=== PATIENT | male | born 1950 | race Caucasian/White ===

== ENCOUNTER 2017-04-12 15:57 | Inpatient (IN) | payer OTHER ==
[~2017-04-12] VITALS: Ht 154.9 cm; Wt 58.3 kg
--- NOTE | ~2017-04-12 | HP ---
History And Physical [place] [id number] [facility] [place]. [address] NAME: RK FRANCOIS : 50 STATUS : ADM IN [facility]#: [id number] AGE: 66 ADM/REG DATE : 04/12/17 MR#: [id number] REPORT SERV DATE: 04/12/17 DICTATED BY: MIKAL CORDERO DATE: 04/12/17 REPORT STATUS : Draft TRANSCRIBED BY: DARIUS DATE: 04/12/17 DATE OF ADMISSION: 04/12/2017 VASCULAR SURGEON: Olegario Madsen M.D. BRANCH LEAD: Toño Lima DPM HISTORY OF PRESENT ILLNESS: This is a 66-year-old male referred to direct admit by Dr. Lima for right foot cellulitis, rule out osteomyelitis. The patient was recently admitted and discharged here from March 25 to March 31 with a right foot gangrene. During that admission, he had an I and D and 4th toe amputation and partial amputation of the hallux. He also underwent a stent placement in the right lower extremity. The patient was then transferred to [facility], and from what he is telling me he did not receive any kind of physical therapy there. The patient went for a followup with Dr. Lima, and he noted that his foot is getting worse and needs to be admitted to rule out for an osteomyelitis and started on antibiotics. The patient denies any fever, chills, or sweats. No nausea and vomiting. He denies any chest pain or abdominal pain. He does admit for right foot pain. He said he takes Tylenol No. 3 over there in [facility], but he does not get much relief from it. He continues to smoke, and he refuses to quit despite several staff members including myself telling him that this would worsen his foot blood supply and he said he is going to smoke until he dies. There was no note of any change in mental status, near syncopal, or syncopal episode, cough or shortness of breath. There is no localized weakness. He did admit to having some increased erythema, pain, and swelling on that right foot. He denies any drainage or odor. REVIEW OF SYSTEMS: The rest of the 14-point review of system is negative except as above. PAST MEDICAL HISTORY: Includes CAD with history of CABG on 08/04/2015, history of colon cancer with surgery, hypertension, COPD, PAD with history of stent placement, history of an old stroke. ALLERGIES: HE SAYS HE IS ALLERGIC TO PENICILLIN AND KEFLEX. HOWEVER, PREVIOUS REPORT HERE, HE WAS ABLE TO TOLERATE ANCEF. MEDICATIONS: Include aspirin, Coreg, Plavix, Colace, gabapentin, Protonix, Florastor, Zocor, and Tylenol No. 3. FAMILY HISTORY: Mom had colon cancer. Dad of MVA. One sibling with CAD. SOCIAL HISTORY: He smokes 1-1/2 packs a day. No alcohol. 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 PHYSICAL EXAMINATION: GENERAL: The patient is alert and oriented x3, not in cardiopulmonary distress. VITAL SIGNS: Include temperature 98.3, pulse rate of 80, blood pressure of 140/59, respiration of 18, saturating 99% on room air. History And Physical [address] [address] NAME: RK FRANCOIS : 50 STATUS : ADM IN [facility]#: [id number] AGE: 66 ADM/REG DATE : 04/12/17 MR#: [id number] REPORT SERV DATE: 04/12/17 DICTATED BY: MIKAL CORDERO DATE: 04/12/17 REPORT STATUS : Draft TRANSCRIBED BY: MODAnne DATE: 04/12/17 NECK: He has supple neck. No JVD or carotid bruits. No lymphadenopathy. HEENT: Julia[place] conjunctivae. Anicteric sclerae. No pharyngeal erythema. LUNGS: Clear lungs. No rales. No wheezes. HEART: Regular rate and rhythm. No murmurs. Positive bowel sounds. ABDOMEN: Soft, nontender. No masses. EXTREMITIES: Fair pulses. No edema except for the right foot with some mild edema, erythema on the first toe, and slightly proximal to it tenderness, slightly warm. NEURO: Nonlocalizing. ASSESSMENT: 1. Right foot cellulitis, rule out osteomyelitis. 2. Coronary artery disease with recent stent placement. 3. Chronic obstructive pulmonary disease. 4. Coronary artery disease with history of coronary artery bypass grafting. 5. Chronic congestive heart failure with ejection fraction of 40% to 45%. 6. Hypertension. 7. Chronic pain. 8. Tobacco abuse. 9. History of colon cancer, status post surgery. PLAN: The patient will be started on Ancef while we get blood cultures and MRI on his foot. It is positive for osteomyelitis or abscesses. He will need surgery. We will continue his antiplatelets, gabapentin, and Zocor. Counseled on stopping smoking, but he refused. AKOSUA/DARIUS Mikal Cordero M.D. / [id number] CC: Tori Fleming M.D.
--- NOTE | ~2017-04-12 | DS ---
Discharge Summary [facility] [address] [place]. [address] NAME: RK FRANCOIS : 50 STATUS : ADM IN [facility]#: [id number] AGE: 66 ADM/REG DATE : 04/12/17 MR#: [id number] REPORT SERV DATE: 04/27/17 DICTATED BY: HOWIE SOLORIO DATE: 04/26/17 REPORT STATUS : Draft TRANSCRIBED BY: MODAnne DATE: 04/26/17 ADMISSION DATE: 04/12/2017 DISCHARGE DATE: 04/26/2017 PRINCIPAL DIAGNOSIS: Osteomyelitis of right foot status post transmetatarsal amputation. SECONDARY DIAGNOSES: Systolic congestive heart failure, chronic obstructive pulmonary disease, peripheral vascular disease, postoperative acute blood loss anemia, coronary artery disease, hypertension. HISTORY OF PRESENT ILLNESS: Please see Dr. Otero's dictation on 04/12/2017. HOSPITAL COURSE: Please see subsequent interim summary by Dr. Otero on 04/18/[address] Navarro on 04/25/2017. Hospital course after that, the patient declined any transfusion. Ferritin was found to be satisfactory. No iron infusion necessary. Arrangements were made to [facility] and he was expected to transfer there on 04/26/2017. Please see Dr. Navarro's note for discharge medications. He will follow up with Dr. Lima following discharge. Greater than 30 minutes was spent in the care of this patient in discharge day and discharge planning. MARIJA/DARIUS Howie Solorio M.D. / [id number] CC: Tori Jean M.D.
--- NOTE | ~2017-04-12 | OP ---
Record Of Operation [facility] [address] [place]. [address] NAME: RK FRANCOIS : 50 STATUS : DIS IN PAT#: [id number] AGE: 66 ADM/REG DATE : 04/12/17 MR#: [id number] REPORT SERV DATE: 05/02/17 DICTATED BY: PHYLLIS LESLIE DATE: 04/28/17 REPORT STATUS : Draft TRANSCRIBED BY: MODL DATE: 04/28/17 DATE OF PROCEDURE: 04/18/2017 POOR AUDIO, CUTTING IN AND OUT PREOPERATIVE DIAGNOSIS: Osteomyelitis, right foot. POSTOPERATIVE DIAGNOSIS: Osteomyelitis, right foot. PROCEDURE: Transmetatarsal amputation, right foot. SURGEON: Phyllis Leslie DPM ANESTHESIA: General. HEMOSTASIS: Pneumatic ankle tourniquet. ESTIMATED BLOOD LOSS: 15 mL. MATERIALS: 3-0 Monocryl and skin get. INDICATION: This 66-year-old male is status post right 4th toe amputation and terminal Symes amputation, 03/27/2017. He has been nonadherent to the post surgical plan, with extensive smoking and weightbearing. He has experienced the dehiscence and necrosis of the surgical wounds, and MRI was positive for osteomyelitis of the fourth metatarsal head. Given the poor healing demonstrated down the fourth digit amputation site, I suggested a transmetatarsal amputation, and the patient was agreeable. PROCEDURE IN DETAIL: After limb was marked in preop, the patient was taken to the operating room and placed on the operating table in a supine position. After induction of general anesthesia, a pneumatic tourniquet was applied, and the foot was prepped and draped in the usual sterile fashion. Using a skin marker, a large fishmouth incision was scribed on the skin across the dorsal metatarsal heads, and the plantar sulcus. Using a #10 blade, an incision was made through skin following the casie, down to the level of bone, with sharp dissection proximally to free the distal metatarsal shaft in preparation for osteotomy. Ample bleeding was noted, and the tourniquet was raised. Satisfied with this, attention was turned to the metatarsal osteotomy. A sagittal saw was used to cut the fourth metatarsal through and through at the distal shaft, with the cut made in a proximal inferior direction to leave a bevelled weightbearing surface. The bone quality was examined, and no infected tissue was observed. With a small amount of bleeding, bone quality was judged satisfactory. This process was repeated at the third metatarsal. Attention was then directed to the fifth metatarsal. It was cut through and through in a distal, dorsal, and medial to plantar proximal, lateral direction at the distal shaft, just proximal to the level of the fourth metatarsal osteotomy. In a similar manner, the remaining metatarsals were cut, with a resulting metatarsal stumps preserving the normal parabola and the first metatarsal beveled slightly medially. The fourth metatarsal head was sent to microbiology for bone culture, Record Of Operation [facility] [address] [facility] [place]. [address] NAME: RK FRANCOIS : 50 STATUS : DIS IN PAT#: [id number] AGE: 66 ADM/REG DATE : 04/12/17 MR#: [id number] REPORT SERV DATE: 05/02/17 DICTATED BY: PHYLLIS LESLIE DATE: 04/28/17 REPORT STATUS : Draft TRANSCRIBED BY: DARIUS DATE: 04/28/17 and the surgical neck was cut through from the head and sent to pathology for clear margin. Plantar tissue planes were identified, and using clean instruments, the sesamoid complex, flexor tendons, and plantar fascia were freed from adjacent soft tissue, and the entire distal foot was delivered from the surgical field. Attention was directed to the metatarsal shafts, and the sagittal saw was used to more perfectly align the ends with the parabola and resect any sharp prominences. Tendon ends were identified, grasped, and freed and resected proximally. Remaining fascia and connective tissue was resected as far as possible to leave healthy bleeding tissue. Attention was directed to the skin margins, and areas of minimal bleeding were identified and resected proximally. The site was pulse lavaged with 2 L of sterile saline. New gloves were donned. The tourniquet was lowered, and surgical sites were examined for any areas of nonviable tissue, but none were found. The plantar skin was then wrapped across the surgical site and approximated to the dermis. 3-0 Monocryl was used to close deep tissue. [place] were used to close the skin at the ends of the surgical site. Closure was not possible at the distal longitudinal incision due to resected nonviable skin at these sites. A wound VAC was then applied with black foam in each of these sites and a bridge between. The patient tolerated the above procedure and anesthesia well, and was transported from the operating room to postop with vital signs stable and in no acute distress. ODETTE/DARIUS Phyllis Leslie DPM / [id number] CC: Bruce Fraser M.D. UNKNOWN
--- NOTE | ~2017-04-12 | DS ---
Discharge Summary [facility] [address] [facility] [place]. [address] NAME: RK FRANCOIS : 50 STATUS : DIS IN PAT#: [id number] AGE: 66 ADM/REG DATE : 04/12/17 MR#: [id number] REPORT SERV DATE: 04/29/17 DICTATED BY: HOWIE SOLORIO DATE: 04/28/17 REPORT STATUS : Draft TRANSCRIBED BY: MODL DATE: 04/28/17 ADMISSION DATE: 04/12/2017 DISCHARGE DATE: 04/28/2017 PRINCIPAL DIAGNOSES: Osteomyelitis of the right foot with cellulitis requiring transmetatarsal amputation. SECONDARY DIAGNOSES: Chronic systolic congestive heart failure, chronic obstructive pulmonary disease due to tobacco abuse, peripheral arterial disease, anemia, coronary artery disease, hypertension. HISTORY OF PRESENT ILLNESS: Please see Dr. Otero's dictation 04/12/2017. HOSPITAL COURSE: Please see interim summary of Dr. Otero on 04/18/2017 and also interim summary by Dr. Navarro's on 04/25/2017. Further hospital course; the patient was awaiting placement in a [facility] facility. He actually had no further problems. No further bleeding. Pain control was the major issue and by 04/28/2017, he was in fact improved and was transferred there in satisfactory condition. Low-salt, low-fat diet, physical and occupational therapy per facility. Continue the following medications; nicotine patch, OxyContin, Percocet p.r.n., Prinivil, Silvadene, Neurontin, Valium, Colace, aspirin, Plavix, Zocor, Florastor, Coreg, p.r.n. nebs. He will follow up with Toño Lima DPM following SNF discharge. Greater than 30 minutes was spent in the care of this patient's discharge planning on discharge day. MARIJA/DARIUS Howie Solorio M.D. / [id number] CC: Tori Jean DPM
--- NOTE | ~2017-04-12 | DS ---
Discharge Summary [facility] [address] [place]. [address] NAME: RK FRANCOIS : 50 STATUS : ADM IN [facility]#: [id number] AGE: 66 ADM/REG DATE : 04/12/17 MR#: [id number] REPORT SERV DATE: 04/26/17 DICTATED BY: DATE: REPORT STATUS : Draft TRANSCRIBED BY: MODL DATE: 04/25/17 ADMISSION DATE: 04/12/2017 DISCHARGE DATE: ANTICIPATED DATE OF DISCHARGE: 04/25/2017. The [facility] is [facility] with multiple attendings including Dr. Otero, Dr. Pope, and Dr. Navarro. CONSULTANTS: Included Podiatry - Dr. Lima and vascular Surgery - Dr. Madsen. DISCHARGE DIAGNOSES: 1. Right foot cellulitis/osteomyelitis/gangrene, status post right transmetatarsal amputation on 04/18/[address] Lima. Culture data showing methicillin-susceptible Staphylococcus aureus, Stenotrophomonas, diphtheroids. To complete 14 days of antibiotics. Presently on Bactrim through 04/26/2017. Status post nine days of IV Ancef. 2. Postoperative functional limitations - inability to perform own wound care or bear weight. 3. Cachexia and chronic failure to thrive. 4. Postoperative acute blood loss anemia with transfusion refusals. 5. History of colon cancer. 6. Chronic pain syndrome. 7. Peripheral arterial disease with recent right superficial femoral artery and proximal popliteal artery stent placement. 8. Coronary artery disease. 9. Coronary artery bypass grafting. 10.History of systolic congestive heart failure - chronic, with ejection fraction 45%. 11.Tobacco dependence. IMAGIN. MRI of the right lower extremity on 04/13/2017 for gangrene shows marrow signal abnormalities in the fourth phalanx, third, fourth, and fifth metatarsal heads, third proximal and middle phalanges, fifth proximal phalanx likely reflective of osteomyelitis. Mild signal abnormalities within the subcu tissues of the mid and distal foot compatible with cellulitis. 2. Right lower extremity venous Doppler ultrasound, 04/14/2017 shows normal indices and normal flow in the right lower extremity with mild decrease in the toe waveform consistent with small-vessel disease, but no stent occlusion. 3. Plain films of the right foot, 04/18/2017, after amputation shows interval transmetatarsal amputation of the right foot with mild amount of soft tissue gas, not unexpected in the immediate postsurgical state. PERTINENT LABS: Basic metabolic panel has remained stable this admission with no abnormalities in creatinine or electrolytes. Past iron studies indicative of anemia of chronic inflammation. White blood cell count this admission has been normal. Hemoglobin Discharge Summary [facility] [address] [place]. [address] NAME: RK FRANCOIS : 50 STATUS : ADM IN PAT#: [id number] AGE: 66 ADM/REG DATE : 04/12/17 MR#: [id number] REPORT SERV DATE: 04/26/17 DICTATED BY: DATE: REPORT STATUS : Draft TRANSCRIBED BY: MODL DATE: 04/25/17 value at admission was 10.0, currently 7.6. Platelet count is normal. Coagulation studies are normal. Blood cultures were negative. Surgical cultures, positive for MSSA, Stenotrophomonas, and diphtheroids; resistant to ampicillin, penicillin, clindamycin, susceptible to Bactrim. BRIEF HISTORY: For full details, please see the previously dictated history of present illness by Dr. Yovany Otero. This is a 66-year-old white male with recent admission for right lower extremity cellulitis and gangrene, who underwent an I and D with fourth toe amputation and partial amputation of the hallux earlier in March as well as stent placement for the right lower extremity. 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 HOSPITAL COURSE: For full details, please reference interim discharge summary by Dr. Yovany Otero for dates of service, 04/12/2017 through 04/18/2017. In essence, the patient was initiated on IV Ancef, awaiting blood cultures and MRI of his foot. The MRI was positive for osteomyelitis, but no abscesses. It was felt that he would require surgery, so Podiatry followed and took the patient for right transmetatarsal amputation on 04/18/2017. The patient did well postoperatively, and his subsequent culture data demonstrated MSSA, Stenotrophomonas, and diphtheroids. His surgical dressing was taken down on , 04/25/2017, by Dr. Lima, who reported reasonable healing and granulation. His recommendation was to complete 14 days total of antibiotics, and the patient was transitioned to oral Bactrim with the 14-day total course of antibiotics to be completed after the 04/26/2017 doses. Postoperatively, the patient has had acute blood loss anemia with a decline in hemoglobin from 10 to 7.6. He refuses transfusions "unless I am dying." He denies any chest pain, shortness of breath, or presyncope with the decline in hemoglobin and is asymptomatic from that perspective. The patient has been waiting in the hospital for approval for rehab. [facility] is currently evaluating the chart and has submitted to insurance for approvals. We are awaiting insurance decisions and bed availability. The patient is willing to consider a correction facility as an alternative if he has refused at [facility], although he has had bad experiences there in the past and is reluctant to consider certain facilities. He has demonstrated clear noncompliance during past discharges to home, and with his new mobility limitations postamputation, I am concerned that he will not be able to tend to his wounds. Home Health was discussed with him as an option, but he refuses it secondary to financial concerns. DISPOSITION: Pending approval at [facility], the patient will be transferred there for acute inpatient rehab and further monitoring of his declining hemoglobin values. DISCHARGE MEDICATIONS: Include: 1. Aspirin 81 mg p.o. daily. 2. Carvedilol 3.125 mg p.o. b.i.d. 3. Plavix 75 mg p.o. daily. Discharge Summary [address] [address] NAME: RK FRANCOIS : 50 STATUS : ADM IN [facility]#: [id number] AGE: 66 ADM/REG DATE : 04/12/17 MR#: [id number] REPORT SERV DATE: 04/26/17 DICTATED BY: DATE: REPORT STATUS : Draft TRANSCRIBED BY: MODL DATE: 04/25/17 4. Neurontin 100 mg p.o. three times a day. 5. Colace 100 mg p.o. three times daily as needed for constipation. 6. Simvastatin 20 mg p.o. q.h.s. 7. Silvadene cream applied with dressing changes every 48 hours. 8. Bactrim double strength one tablet p.o. twice a day through 04/26/2017. 9. Tylenol 650 mg every four hours as needed for pain or fever. 10.Percocet 10/325 mg one tablet p.o. every four hours as needed for pain. 11.Prilosec 40 mg p.o. q.a.c. breakfast. 12.DuoNebs q.4 hours while awake as needed for shortness of breath. Thirty-five minutes was spent in completion of the discharge. NINO/DARIUS Carlos Alberto Navarro M.D. / [id number] CC: Tori Phillips M.D. Christopher Lesar, M.D. David Q. Anderson, DPM
--- NOTE | ~2017-04-12 | IDS ---
Interim Discharge Summary [facility] [address] [place]. [address] NAME: RK FRANCOIS : 50 STATUS : ADM IN [facility]#: [id number] AGE: 66 ADM/REG DATE : 04/12/17 MR#: [id number] REPORT SERV DATE: 04/18/17 DICTATED BY: MIKAL CORDERO DATE: 04/18/17 REPORT STATUS : Draft TRANSCRIBED BY: MODAnne DATE: 04/18/17 ADMISSION DATE: 04/12/2017 DISCHARGE DATE: CONSULTING PHYSICIAN: Olegario Madsen M.D., vascular surgery. INTERIM DIAGNOSES: 1. Right foot osteomyelitis and cellulitis, status post surgery. 2. Peripheral arterial disease with recent stent placement. 3. Coronary artery disease with history of coronary artery bypass graft. 4. Hypertension. 5. Chronic congestive heart failure with ejection fraction of 40% to 45%. 6. Chronic obstructive pulmonary disease. 7. Chronic pain. 8. Tobacco abuse. DIAGNOSTIC EXAMS: MRI of the right foot showing status post amputation of the 4th digit and partial amputation of the big toe distal phalanx. Mild marrow signal abnormality of the residual big toe distal phalanx; third, fourth, and fifth metatarsal head; third proximal and middle phalanges; fifth proximal phalanx; possible osteomyelitis; mild signal abnormality in the subcutaneous tissue of the mid and distal foot compatible with cellulitis. Arterial Duplex showing normal indices in both lower extremities. Normal flow in the right lower extremity. Mild decrease in the toe waveform consistent with small vessel disease. Normal arterial waveforms in the left lower extremity. HOSPITAL COURSE: Please refer to the H and P done by myself on 04/12/2017. Briefly, this is a 66-year-old male who was recently admitted and discharged for right foot gangrene. During that admission, the patient underwent right SFA and proximal popliteal artery stent placement with balloon angioplasty followed by I and D and fourth toe amputation and partial first toe amputation. The patient was then sent to rehab, and according to him he was not taking any rehab. The patient followed up with Dr. Toño Lima, where he found the foot looking like it is infected. Again, he sent the patient for a direct admit, and we did an MRI which shows the above findings. We got Dr. Madsen involve who cleared the patient for surgery, and Dr. Lima involved where he just finished doing TMA on the patient. The patient is now in recovery, and he will be continued to be monitored to the floor afterwards where he is going to continue his Ancef for now to cover the previous pathogen of MSSA, and we will be following up the culture done in the OR and pathology if ever it was sent. A partner of [facility] will be following up the patient starting tomorrow morning. AKOSUA/DARIUS Mikal Cordero M.D. Interim Discharge Summary [address] [address] NAME: RK FRANCOIS : 50 STATUS : ADM IN [facility]#: [id number] AGE: 66 ADM/REG DATE : 04/12/17 MR#: [id number] REPORT SERV DATE: 04/18/17 DICTATED BY: MIKAL CORDERO DATE: 04/18/17 REPORT STATUS : Draft TRANSCRIBED BY: DARIUS DATE: 04/18/17 / [id number] CC: Tori Fleming M.D.
[~2017-04-12 15:57] MED LIST: ASAB PO; CLEOCIN300 MG PO; COREG3 PO; LORTAB10 PO; MSCONT15 PO; NITROSTAT0.4 MG SL; NORCO1 TAB PO; OXYIR5 MG PO; PLAVIX PO; PRAVACHOL40 MG PO; PRILOSEC40 MG PO; PROTONIX PO; QUESLITE PO; ULTRAM50 PO; ZOCOR20 PO
[2017-04-12] MEDS ORDERED: PLAVIX PO (17:51)
[2017-04-12] MEDS ORDERED: PROBIOTIC PO (17:52)
[2017-04-12] MEDS ORDERED: T3 PO (17:55)
[2017-04-12] MEDS ORDERED: DSS PO (17:55)
[2017-04-12] MEDS ORDERED: NEUR100 PO (17:55)
[2017-04-12] MEDS ORDERED: ASAB PO (17:56)
[2017-04-12 23:22] LABS: BASOPHILS 0.4 %; BASOPHILS ABSOLUTE 0.03 10/3/uL (0.0-0.16); EOSINOPHILS 4.7 %; EOSINOPHILS ABSOLUTE 0.39 10/3/uL (0.0-0.53); IMMATURE GRANULOCYTES 0.4 %; IMMATURE GRANULOCYTES ABSOLUTE 0.03 10/3/uL (0.0-0.11); LYMPHOCYTES 24.6 %; LYMPHOCYTES ABSOLUTE 2.04 10/3/uL (0.67-4.30); MEAN CORPUSCULAR HEMOGLOB 29.6 pg (26.0-34.0); MEAN CORPUSCULAR VOLUME 91.4 fL (80-100); MEAN PLATELET VOLUME 8.2 fL (9.2-13.0); MONOCYTES 7.3 %; MONOCYTES ABSOLUTE 0.61 10/3/uL (0.21-1.20); NEUTROPHILS 62.6 %; RBC DISTRIBUTION WIDTH 14.9 % (12.0-16.0); RED CELL COUNT 3.38 10/6/uL (4.7-6.1); WHITE BLOOD CELLS 8.3 10/3/uL (4.5-10.5)
[2017-04-12 23:23] LABS: HEMATOCRIT 30.9 % (40.0-51.0); MANUAL DIFF NO %; MEAN CORPUS HGB CONC 32.4 g/dL (32.0-36.0); PLATELET COUNT 294 10/3/uL (150-400)
[2017-04-12 23:28] LABS: INTERNATIONAL NORMAL RATI 1.2 UNITS (-); PARTIAL THROMBO TIME 46.5 SEC (22.5-37.2); PROTIME (NOT ORD) 14.7 SEC (12.0-14.5)
[2017-04-12 23:42] LABS: A/G RATIO 0.7 (0.7-1.9); ALBUMIN 3.1 G/DL (3.5-5.0); BUN (BLOOD UREA NITROGEN) 14 MG/DL (6-23); CALCIUM, SERUM 8.5 MG/DL (8.5-10.4); CHLORIDE, SERUM 104 MMOL/L (96-112); CREATININE 1.05 MG/DL (0.70-1.30); GFR AFRICAN AMERICAN 85 ML/MIN (>=60); GFR NON AFRICAN AMERICAN 74 ML/MIN (>=60); GLOBULIN 4.3 G/DL (2.5-4.1); POTASSIUM, SERUM 3.9 MMOL/L (3.5-5.3); SGOT(AST) 51 U/L (5-40); SGPT(ALT) 69 U/L (5-65); SODIUM, SERUM 137 MMOL/L (135-148); TOTAL BILIRUBIN 0.4 MG/DL (0-1.2); TOTAL PROTEIN 7.4 G/DL (6.0-8.5)
[2017-04-12 23:43] LABS: ALKALINE PHOSPHATASE 119 U/L (45-117); CO2 (CARBON DIOXIDE) 30 MMOL/L (24-34); GLUCOSE, SERUM 126 MG/DL (60-99)
[2017-04-18 06:10] LABS: BASOPHILS 0.9 %; BASOPHILS ABSOLUTE 0.06 10/3/uL (0.0-0.16); EOSINOPHILS 3.9 %; EOSINOPHILS ABSOLUTE 0.27 10/3/uL (0.0-0.53); HEMATOCRIT 29.5 % (40.0-51.0); HEMOGLOBIN 9.6 g/dL (13.6-17.8); IMMATURE GRANULOCYTES 0.3 %; IMMATURE GRANULOCYTES ABSOLUTE 0.02 10/3/uL (0.0-0.11); LYMPHOCYTES 30.9 %; LYMPHOCYTES ABSOLUTE 2.16 10/3/uL (0.67-4.30); MANUAL DIFF NO %; MEAN CORPUS HGB CONC 32.5 g/dL (32.0-36.0); MEAN CORPUSCULAR HEMOGLOB 29.6 pg (26.0-34.0); MEAN PLATELET VOLUME 8.2 fL (9.2-13.0); MONOCYTES 8.2 %; MONOCYTES ABSOLUTE 0.57 10/3/uL (0.21-1.20); NEUTROPHILS 55.8 %; NEUTROPHILS ABSOLUTE 3.91 10/3/uL (2.02-8.40); PLATELET COUNT 219 10/3/uL (150-400); RBC DISTRIBUTION WIDTH 15.2 % (12.0-16.0); RED CELL COUNT 3.24 10/6/uL (4.7-6.1)
[2017-04-18 06:24] LABS: BUN (BLOOD UREA NITROGEN) 16 MG/DL (6-23); CALCIUM, SERUM 8.7 MG/DL (8.5-10.4); CHLORIDE, SERUM 104 MMOL/L (96-112); CO2 (CARBON DIOXIDE) 29 MMOL/L (24-34); CREATININE 0.81 MG/DL (0.70-1.30); GFR AFRICAN AMERICAN 107 ML/MIN (>=60); GFR NON AFRICAN AMERICAN 93 ML/MIN (>=60); POTASSIUM, SERUM 4.5 MMOL/L (3.5-5.3); SODIUM, SERUM 139 MMOL/L (135-148)
[2017-04-18 06:25] LABS: GLUCOSE, SERUM 90 MG/DL (60-99)
[2017-04-19 06:21] LABS: BASOPHILS 0.3 %; BASOPHILS ABSOLUTE 0.03 10/3/uL (0.0-0.16); EOSINOPHILS 2.1 %; EOSINOPHILS ABSOLUTE 0.19 10/3/uL (0.0-0.53); HEMATOCRIT 27.9 % (40.0-51.0); HEMOGLOBIN 9.1 g/dL (13.6-17.8); IMMATURE GRANULOCYTES 0.2 %; IMMATURE GRANULOCYTES ABSOLUTE 0.02 10/3/uL (0.0-0.11); LYMPHOCYTES 14.2 %; LYMPHOCYTES ABSOLUTE 1.29 10/3/uL (0.67-4.30); MEAN CORPUS HGB CONC 32.6 g/dL (32.0-36.0); MEAN CORPUSCULAR HEMOGLOB 29.2 pg (26.0-34.0); MEAN CORPUSCULAR VOLUME 89.4 fL (80-100); MEAN PLATELET VOLUME 8.2 fL (9.2-13.0); MONOCYTES 10.2 %; MONOCYTES ABSOLUTE 0.93 10/3/uL (0.21-1.20); NEUTROPHILS ABSOLUTE 6.63 10/3/uL (2.02-8.40); PLATELET COUNT 201 10/3/uL (150-400); RBC DISTRIBUTION WIDTH 15.3 % (12.0-16.0); RED CELL COUNT 3.12 10/6/uL (4.7-6.1); WHITE BLOOD CELLS 9.1 10/3/uL (4.5-10.5)
[2017-04-19 06:23] LABS: MANUAL DIFF NO %
[2017-04-19 06:48] LABS: BUN (BLOOD UREA NITROGEN) 14 MG/DL (6-23); CALCIUM, SERUM 8.4 MG/DL (8.5-10.4); CHLORIDE, SERUM 100 MMOL/L (96-112); CO2 (CARBON DIOXIDE) 26 MMOL/L (24-34); CREATININE 0.83 MG/DL (0.70-1.30); GFR AFRICAN AMERICAN 106 ML/MIN (>=60); GFR NON AFRICAN AMERICAN 92 ML/MIN (>=60); POTASSIUM, SERUM 4.3 MMOL/L (3.5-5.3); SODIUM, SERUM 134 MMOL/L (135-148)
[2017-04-19 06:49] LABS: GLUCOSE, SERUM 120 MG/DL (60-99)
[2017-04-20 05:16] LABS: BASOPHILS 0.5 %; BASOPHILS ABSOLUTE 0.04 10/3/uL (0.0-0.16); EOSINOPHILS 3.4 %; EOSINOPHILS ABSOLUTE 0.27 10/3/uL (0.0-0.53); HEMOGLOBIN 8.5 g/dL (13.6-17.8); LYMPHOCYTES 19.9 %; LYMPHOCYTES ABSOLUTE 1.58 10/3/uL (0.67-4.30); MANUAL DIFF NO %; MEAN CORPUS HGB CONC 32.7 g/dL (32.0-36.0); MEAN CORPUSCULAR HEMOGLOB 29.7 pg (26.0-34.0); MEAN CORPUSCULAR VOLUME 90.9 fL (80-100); MEAN PLATELET VOLUME 8.5 fL (9.2-13.0); MONOCYTES 12.8 %; MONOCYTES ABSOLUTE 1.01 10/3/uL (0.21-1.20); NEUTROPHILS 63.4 %; NEUTROPHILS ABSOLUTE 5.02 10/3/uL (2.02-8.40); PLATELET COUNT 189 10/3/uL (150-400); RBC DISTRIBUTION WIDTH 15.5 % (12.0-16.0); RED CELL COUNT 2.86 10/6/uL (4.7-6.1); WHITE BLOOD CELLS 7.9 10/3/uL (4.5-10.5)
[2017-04-20 05:28] LABS: CALCIUM, SERUM 8.1 MG/DL (8.5-10.4); CHLORIDE, SERUM 99 MMOL/L (96-112); CO2 (CARBON DIOXIDE) 27 MMOL/L (24-34); CREATININE 0.94 MG/DL (0.70-1.30); GFR AFRICAN AMERICAN 98 ML/MIN (>=60); GFR NON AFRICAN AMERICAN 84 ML/MIN (>=60); POTASSIUM, SERUM 3.5 MMOL/L (3.5-5.3); SODIUM, SERUM 132 MMOL/L (135-148)
[2017-04-20 05:29] LABS: BUN (BLOOD UREA NITROGEN) 10 MG/DL (6-23); GLUCOSE, SERUM 163 MG/DL (60-99)
[2017-04-21 05:05] LABS: BASOPHILS 0.5 %; BASOPHILS ABSOLUTE 0.04 10/3/uL (0.0-0.16); EOSINOPHILS 3.8 %; EOSINOPHILS ABSOLUTE 0.31 10/3/uL (0.0-0.53); HEMATOCRIT 24.4 % (40.0-51.0); IMMATURE GRANULOCYTES 0.4 %; IMMATURE GRANULOCYTES ABSOLUTE 0.03 10/3/uL (0.0-0.11); LYMPHOCYTES 25.1 %; LYMPHOCYTES ABSOLUTE 2.04 10/3/uL (0.67-4.30); MEAN CORPUS HGB CONC 32.8 g/dL (32.0-36.0); MEAN CORPUSCULAR HEMOGLOB 29.6 pg (26.0-34.0); MEAN CORPUSCULAR VOLUME 90.4 fL (80-100); MEAN PLATELET VOLUME 8.4 fL (9.2-13.0); MONOCYTES 9.1 %; MONOCYTES ABSOLUTE 0.74 10/3/uL (0.21-1.20); NEUTROPHILS 61.1 %; NEUTROPHILS ABSOLUTE 4.96 10/3/uL (2.02-8.40); PLATELET COUNT 184 10/3/uL (150-400); RBC DISTRIBUTION WIDTH 15.5 % (12.0-16.0); WHITE BLOOD CELLS 8.1 10/3/uL (4.5-10.5)
[2017-04-21 05:07] LABS: MANUAL DIFF NO %
[2017-04-21 05:14] LABS: BUN (BLOOD UREA NITROGEN) 12 MG/DL (6-23); CHLORIDE, SERUM 104 MMOL/L (96-112); CO2 (CARBON DIOXIDE) 29 MMOL/L (24-34); CREATININE 0.91 MG/DL (0.70-1.30); GFR AFRICAN AMERICAN 101 ML/MIN (>=60); GFR NON AFRICAN AMERICAN 88 ML/MIN (>=60); SODIUM, SERUM 136 MMOL/L (135-148)
[2017-04-21 05:16] LABS: GLUCOSE, SERUM 90 MG/DL (60-99); POTASSIUM, SERUM 4.3 MMOL/L (3.5-5.3)
[2017-04-22 06:00] LABS: BASOPHILS 0.7 %; BASOPHILS ABSOLUTE 0.04 10/3/uL (0.0-0.16); EOSINOPHILS 4.3 %; EOSINOPHILS ABSOLUTE 0.26 10/3/uL (0.0-0.53); HEMATOCRIT 24.9 % (40.0-51.0); HEMOGLOBIN 8.1 g/dL (13.6-17.8); IMMATURE GRANULOCYTES 0.2 %; IMMATURE GRANULOCYTES ABSOLUTE 0.01 10/3/uL (0.0-0.11); LYMPHOCYTES 32.9 %; MEAN CORPUS HGB CONC 32.5 g/dL (32.0-36.0); MEAN CORPUSCULAR HEMOGLOB 29.3 pg (26.0-34.0); MEAN CORPUSCULAR VOLUME 90.2 fL (80-100); MEAN PLATELET VOLUME 8.1 fL (9.2-13.0); MONOCYTES 10.4 %; MONOCYTES ABSOLUTE 0.63 10/3/uL (0.21-1.20); NEUTROPHILS 51.5 %; NEUTROPHILS ABSOLUTE 3.13 10/3/uL (2.02-8.40); PLATELET COUNT 172 10/3/uL (150-400); RBC DISTRIBUTION WIDTH 15.6 % (12.0-16.0); RED CELL COUNT 2.76 10/6/uL (4.7-6.1); WHITE BLOOD CELLS 6.1 10/3/uL (4.5-10.5)
[2017-04-22 06:05] LABS: MANUAL DIFF NO %
[2017-04-22 06:10] LABS: ALBUMIN 2.4 G/DL (3.5-5.0); BUN (BLOOD UREA NITROGEN) 18 MG/DL (6-23); CALCIUM, SERUM 8.1 MG/DL (8.5-10.4); CHLORIDE, SERUM 104 MMOL/L (96-112); CO2 (CARBON DIOXIDE) 27 MMOL/L (24-34); CREATININE 1.06 MG/DL (0.70-1.30); GFR AFRICAN AMERICAN 84 ML/MIN (>=60); GFR NON AFRICAN AMERICAN 73 ML/MIN (>=60); GLUCOSE, SERUM 97 MG/DL (60-99); PHOSPHORUS, SERUM 3.7 MG/DL (2.5-4.5); POTASSIUM, SERUM 4.3 MMOL/L (3.5-5.3); SODIUM, SERUM 139 MMOL/L (135-148)
[2017-04-24 06:20] LABS: BASOPHILS 0.6 %; BASOPHILS ABSOLUTE 0.03 10/3/uL (0.0-0.16); EOSINOPHILS 4.3 %; EOSINOPHILS ABSOLUTE 0.23 10/3/uL (0.0-0.53); HEMATOCRIT 23.5 % (40.0-51.0); HEMOGLOBIN 7.6 g/dL (13.6-17.8); IMMATURE GRANULOCYTES 0.2 %; IMMATURE GRANULOCYTES ABSOLUTE 0.01 10/3/uL (0.0-0.11); LYMPHOCYTES 31.8 %; LYMPHOCYTES ABSOLUTE 1.69 10/3/uL (0.67-4.30); MEAN CORPUS HGB CONC 32.3 g/dL (32.0-36.0); MEAN CORPUSCULAR HEMOGLOB 29.1 pg (26.0-34.0); MEAN PLATELET VOLUME 8.5 fL (9.2-13.0); MONOCYTES 9.6 %; MONOCYTES ABSOLUTE 0.51 10/3/uL (0.21-1.20); NEUTROPHILS 53.5 %; NEUTROPHILS ABSOLUTE 2.84 10/3/uL (2.02-8.40); PLATELET COUNT 172 10/3/uL (150-400); RED CELL COUNT 2.61 10/6/uL (4.7-6.1); WHITE BLOOD CELLS 5.3 10/3/uL (4.5-10.5)
[2017-04-24 06:21] LABS: MANUAL DIFF NO %
[2017-04-24 06:31] LABS: CALCIUM, SERUM 8.3 MG/DL (8.5-10.4); CHLORIDE, SERUM 106 MMOL/L (96-112); CO2 (CARBON DIOXIDE) 26 MMOL/L (24-34); CREATININE 1.12 MG/DL (0.70-1.30); GFR AFRICAN AMERICAN 79 ML/MIN (>=60); GFR NON AFRICAN AMERICAN 68 ML/MIN (>=60); GLUCOSE, SERUM 84 MG/DL (60-99); POTASSIUM, SERUM 4.5 MMOL/L (3.5-5.3); SODIUM, SERUM 139 MMOL/L (135-148)
[2017-04-24 06:33] LABS: BUN (BLOOD UREA NITROGEN) 22 MG/DL (6-23)
[2017-04-26 10:58] LABS: HEMATOCRIT 25.5 % (40.0-51.0); HEMOGLOBIN 8.2 g/dL (13.6-17.8)
== END 2017-04-28 19:00 | DRG 475 ==
LOC: ENRESERVTM → ENRESERVDT → ENRESERV → 7NO 16:59
PROVIDERS: Hospitalist; Internal Medicine; Podiatrist
PROC: 0Y6M0ZD Detachment at Right Foot, Partial 4th Ray, Open Approach (ICD-10-PCS; principal; 2017-04-18 13:45)
DX: M86.171 Other acute osteomyelitis, right ankle and foot (principal); L03.115 Cellulitis of right lower limb; E44.0 Moderate protein-calorie malnutrition; I11.0 Hypertensive heart disease with heart failure; I50.22 Chronic systolic (congestive) heart failure; J44.9 Chronic obstructive pulmonary disease, unspecified; I25.10 Atherosclerotic heart disease of native coronary artery without angina pectoris; Z95.5 Presence of coronary angioplasty implant and graft; Z95.1 Presence of aortocoronary bypass graft; F17.210 Nicotine dependence, cigarettes, uncomplicated; Z85.038 Personal history of other malignant neoplasm of large intestine; I73.9 Peripheral vascular disease, unspecified; Z86.73 Personal history of transient ischemic attack (TIA), and cerebral infarction without residual deficits; Z95.820 Peripheral vascular angioplasty status with implants and grafts; Z68.24 Body mass index [BMI] 24.0-24.9, adult
CPT/HCPCS: 73630-RT; 73721-RT; 80048; 80053; 80069; 82728; 83735; 85014; 85018; 85025; 85610; 85730; 87015; 87040; 87070; 87075; 87077; 87102; 87116; 87186; 87205; 88304; 88307; 88311; 93005; 93923; 97116-GP; 97161-GP; 97165-GO; 97530-GO; 97535-GO; A9270-GY; J0330; J0690; J1170; J2250; J2370; J2405; J3010